=== PATIENT | female | born 1970 | race Caucasian/White ===

== ENCOUNTER 2020-03-27 10:27 | Emergency (ER) | payer MEDICARE, SELFPAY ==
[2020-03-27 10:28] VITALS: BP 155/91; PULSE 67; RESP 18; TEMP 36.6; BMI 32.2
--- NOTE | 2020-03-27 10:54 | CT_ITS ---
WS: [id number] CT HEAD TECHNIQUE: Noncontrast CT of the head obtained from the skullbase to the vertex. CLINICAL INFORMATION: seizure COMPARISON: . DLP: 767.[address] scans at [facility] use at least one of these dose optimization techniques: automat ed exposure control; mA and/or kV adjustment per patient size (includes targeted exams where dose is matched to clinical indication); or iterative reconstruction. FINDINGS: No evidence of intracranial hemorrhage or mass effect. Ventricular system and basal cisterns are zambrano nt No extra-axial fluid collections. No evidence of mass or mass effect. Normal galeano-white differenti ation. Paranasal sinuses and mastoid air cells are well aerated. .Normal visualized soft tissues. Incidental bony osteoma overlying the left mastoid. CT/CT head wo con* [id number] IMPRESSION: 1. No evidence of intracranial hemorrhage or mass effect. 2. Normal galeano-white differentiation. 3. No acute intracranial findings.
--- NOTE | 2020-03-27 11:04 | ED_ITS ---
HPI - Seizure General: Chief Complaint: Seizure Stated Complaint: SEIZURE Time Seen by Provider: 03/27/20 10:53 Source: patient and EMS Mode of arrival: EMS Limitations: no limitations History of Present Illness: HPI Narrative: 49-year-old female has had a history of seizures in the past. She states that in the past they thought it was due to hypoglycemia and she has never been placed on seizure medication. She states she had a seizure yesterday and has had 5-6 seizures today. EMS states she was originally postictal she is now awake alert able answer my questions. She states she does have a moderate headache. She does have a history of a pituitary tumor that was removed years ago. She denies any vomiting denies any worsening or improving factors. She denies any fever. Associated symptoms: Deny chest pain, chills or fever(s) Review of Systems Const: Denies: fever(s), chills, body aches or change in appetite Eyes: Denies: blurry vision or eye discomfort ENMT: Denies: throat pain or dental pain Card: Denies: chest pain Resp: Denies: dyspnea GI: Denies: abdominal pain, nausea, vomiting or diarrhea : Denies: dysuria Musc: Denies: neck pain or back pain Skin/Breast: Denies: rash Neuro: Reports: headache(s) and seizure-like activity Psych: Denies: depression Odin/Lymph: Denies: easy bruising All/Imm: Denies: urticaria Physical Exam Const: COMMON NORMALS: no acute distress, patient oriented x3 and healthy appearing HENMT: COMMON NORMALS: normocephalic and atraumatic HEAD & SCALP: normocephalic and atraumatic Eye: COMMON NORMALS: Equal, round and reactive pupils present and EOMs intact bilaterally PUPIL: Yes Equal, round and reactive pupils present Neck/C-Spine: COMMON NORMALS: full ROM and supple Chest: COMMONS NORMALS: normal inspection of the chest and normal palpation of entire chest wall Resp: COMMON NORMALS: normal respiratory effort, No retractions, No use of accessory muscles and clear to auscultation bilaterally AUSCULTATION: clear to auscultation bilaterally Cardio: COMMON NORMALS: regular rate, regular rhythm and No murmurs present (Cardio) RATE: regular rate RHYTHM: regular rhythm GI: COMMON NORMALS: Normal to inspection, nondistended, normoactive bowel sounds present, Soft to palpation, non-tender and no masses PALPATION: Yes Soft to palpation Extremity: COMMON NORMALS: normal to inspection and full ROM Neuro: COMMON NORMALS: patient oriented x3, moves all extremities and no focal motor deficits Psych: COMMON NORMALS: mental status grossly normal, Normal thought process present and cooperative THOUGHT PROCESS: Normal thought process present Skin: COMMON NORMALS: no rashes or lesions noted and no wounds GENERAL SKIN EXAM: no rashes or lesions noted Course Vital Signs: Vital signs: Vital Signs Temperature 97.8 F 03/27/20 10:28 Pulse Rate 82 03/27/20 13:18 Respiratory Rate 15 03/27/20 13:18 Blood Pressure 161/99 03/27/20 13:18 Pulse Oximetry 96 03/27/20 13:18 MDM - Seizure MDM Narrative: Medical decision making narrative: Shaina presents here with seizure. She has had multiple seizures in the past but she has never been started on seizure medication. She is well-appearing here and has been seizure- free. Her CT head and blood work are normal. We will start her on Keppra and have her follow-up with neurology. She is to return if worsening. She understands and agrees to plan. Lab Data: Labs: Lab Results 03/27/20 03/27/20 03/27/20 Range/Units 09:00 09:00 10:47 WBC 6.2 (4.0-10.0) 10^3/ uL RBC 4.57 (4.1-5.3) 10^6/u L Hgb 13.9 (11.5-15.3) g/dL Hct 42.8 (37.0-47.0) % MCV 93.7 (81-99) fL MCH 30.4 (28.0-34.0) pg MCHC 32.5 (30.0-36.0) g/dL RDW 11.9 L (12.1-15.1) % Plt Count 249 (130-400) 10^3/c mm MPV 10.0 (7.4-10.4) fL Neut % (Auto) 51.6 % Lymph % (Auto) 34.0 % [place]rell % (Auto) 7.4 % Eos % (Auto) 5.5 % Baso % (Auto) 1.3 % Neut # (Auto) 3.19 (1.8-7.7) 10^3/u L Lymph # (Auto) 2.1 (0.8-4.8) 10^3/u L [place]rell # (Auto) 0.5 (0.2-0.9) 10^3/u L Eos # (Auto) 0.3 (0.0-0.8) 10^3/u L Baso # (Auto) 0.1 (0.0-0.1) 10^3/u L Nucleated RBC % (a uto) 0 % Nucleated RBCs # 0.0 /100WBC Sodium 138 (136-145) mmol/L Potassium 4.2 (3.5-5.1) mmol/L Chloride 101 (98-107) mmol/L Carbon Dioxide 24 (22-29) mmol/L Anion Gap 17.2 (5-19) BUN 9 (6-20) mg/dL Creatinine 0.8 (0.5-0.9) mg/dL GFR Calculation 75.6 L (90-130) mL/min Glucose 99 (65-115) mg/dL Calculated Osmolal ity 285 (285-295) mOsm/k g Calcium 9.5 (8.5-10.5) mg/dL Urine Color Straw (Yellow) Urine Appearance Clear (CLEAR) Urine pH 6.5 (5-7) Ur Specific Gravit y 1.005 (1.005-1.030) Urine Protein Neg (Negative) Urine Glucose (UA) Norm (Normal) Urine Ketones Negative (Negative) Urine Blood Neg (Negative) Urine Nitrate Negative (Negative) Urine Bilirubin Neg (Negative) Urine Urobilinogen Norm (Negative) mg/dL Ur Leukocyte Radha ase Negative (Negative) Imaging Data^: CT Head: Attestation: I personally reviewed and interpreted this imaging study as follows: Radiologist's impression: [address] [address] [address] Scan Report Signed Patient: Shaina Garrido Unit #: [id number] : 1970 Age/Sex: 49 / F ADM Date: 03/27/20 Loc: ER Room/Bed: Attending Dr: Ordering Provider/Ordering MD: Frances Cali MD Date of Service: 03/27/20 Procedure(s): CT head wo con* [id number] Accession Number(s): [id number] Report Number: [id number] WS: [id number] CT HEAD TECHNIQUE: Noncontrast CT of the head obtained from the skullbase to the vertex. CLINICAL INFORMATION: seizure COMPARISON: . DLP: 767.[address] scans at [facility] use at least one of these dose optimization techniques: automated exposure control; mA and/or kV adjustment per patient size (includes targeted exams where dose is matched to clinical indication); or iterative reconstruction. FINDINGS: No evidence of intracranial hemorrhage or mass effect. Ventricular system and basal cisterns are patent No extra-axial fluid collections. No evidence of mass or mass effect. Normal galeano-white differentiation. Paranasal sinuses and mastoid air cells are well aerated. .Normal visualized soft tissues. Incidental bony osteoma overlying the left mastoid. CT/CT head wo con* [id number] IMPRESSION: 1. No evidence of intracranial hemorrhage or mass effect. 2. Normal galeano-white differentiation. 3. No acute intracranial findings. Discharge Plan Discharge Patient Disposition: Home Clinical Impression: Generalized seizure Condition: Stable Prescriptions: New Keppra 500 mg tablet 500 mg PO Q12H Qty: 60 RF: 0 No Action cyclobenzaprine 10 mg tablet 10 mg PO BEDTIME RF: 0 venlafaxine 37.5 mg capsule,extended release 24hr 37.5 mg PO DAILY RF: 0 hydrocodone-acetaminophen 5-325 mg tablet 1 tab PO Q6H PRN (Reason: Pain) RF: 0 sucralfate 1 gram tablet 1 g PO QID PRN (Reason: Stomach Upset) RF: 0 losartan 25 mg tablet 25 mg PO DAILY RF: 0 gabapentin 300 mg capsule 300 mg PO TID RF: 0 hydroxyzine HCl 25 mg tablet 25 mg PO Q6H PRN (Reason: Anxiety) RF: 0 diazepam 5 mg tablet 5 mg PO Q6H PRN (Reason: Anxiety) RF: 0 levothyroxine 112 mcg tablet 112 mcg PO DAILY RF: 0 nitrofurantoin monohyd/m-cryst 100 mg capsule 100 mg PO BID RF: 0 cholecalciferol (vitamin D3) 1,250 mcg (50,000 unit) capsule 1,250 mcg PO Q7D RF: 0 potassium chloride 20 mEq tablet extended release 20 meq PO DAILY RF: 0 Discharge Orders: Discharge ED (Routine); Ordered 03/27/20 Ordered By: Frances Cali Referrals: Riddhi Walker MD [Physician] - 1-3 days Discharge Diet: Advance as tolerated Discharge Activity: Resume usual activity Patient Instructions: New-Onset Seizure in Adults (ED) Coding Level of Care Code ED Director Pharmacovigilance for Chg Fwd Exam Comprehensive
[2020-03-27 11:19] LABS: Anion Gap 17.2 (5-19); Blood Urea Nitrogen 9 mg/dL (6-20); Calcium 9.5 mg/dL (8.5-10.5); Carbon Dioxide 24 mmol/L (22-29); Chloride 101 mmol/L (98-107); Glomerular Filtration Rate 75.6 mL/min (90-130); Glucose 99 mg/dL (65-115); Osmolality Calculated 285 mOsm/kg (285-295); Potassium 4.2 mmol/L (3.5-5.1); Sodium 138 mmol/L (136-145)
[2020-03-27] MEDS: LORazepam 2 mg/mL INJ 1 mL 1 MG IVP (11:19)
[2020-03-27 11:22] VITALS: BP 121/76; PULSE 72; RESP 18; O2SAT 96
--- NOTE | 2020-03-27 11:22 | PC.NURSE ---
Has had [address] Cali notified, Meds given per written order. Wakes up after Sz and responds appropriately
[2020-03-27 11:26] LABS: Basophils # 0.1 10^3/uL (0.0-0.1); Basophils % 1.3 %; Eosinophils # 0.3 10^3/uL (0.0-0.8); Eosinophils % 5.5 %; Hematocrit 42.8 % (37.0-47.0); Hemoglobin 13.9 g/dL (11.5-15.3); Lymphocytes # 2.1 10^3/uL (0.8-4.8); Mean Corpuscular HGB Conc 32.5 g/dL (30.0-36.0); Mean Corpuscular Hemoglobin 30.4 pg (28.0-34.0); Mean Corpuscular Volume 93.7 fL (81-99); Monocytes # 0.5 10^3/uL (0.2-0.9); Monocytes % 7.4 %; Neutrophils # 3.19 10^3/uL (1.8-7.7); Neutrophils % 51.6 %; Nucleated Red Blood Cells % 0 %; Platelet Count 249 10^3/cmm (130-400); Red Blood Count 4.57 10^6/uL (4.1-5.3); Red Cell Distribution Width 11.9 % (12.1-15.1); White Blood Count 6.2 10^3/uL (4.0-10.0)
[2020-03-27 11:35] VITALS: BP 121/73; PULSE 63; RESP 18; O2SAT 96
[2020-03-27 12:04] LABS: Add Urine Microscopic? NO
[2020-03-27 12:12] VITALS: BP 121/76; PULSE 68; RESP 18; O2SAT 96
[2020-03-27 12:18] LABS: Bilirubin Urine Neg (Negative); Blood Urine Neg (Negative); Glucose Urine UA Norm (Normal); Ketones Urine Negative (Negative); Leukocyte Esterase Urine Negative (Negative); Nitrate Urine Negative (Negative); Protein Urine Neg (Negative); Specific Gravity, Urine 1.005 (1.005-1.030); Urine Appearance Clear (CLEAR); Urine Color Straw (Yellow); Urobilinogen Urine Norm (Negative); pH Urine 6.5 (5-7)
[2020-03-27 12:33] VITALS: BP 151/99; PULSE 66; RESP 18; O2SAT 96
[2020-03-27 13:18] VITALS: BP 161/99; PULSE 82; RESP 15; O2SAT 96
--- NOTE | 2020-03-27 15:42 | DCPLANNER ---
manager dairy had message to schedule a follow up appointment for patient with Dr. Walker. manager dairy called the office of Dr. Walker, a voicemail was left for Brianda Macedo, clinical trial coordinator for that office with patients information. Patients information will be printed and reviewed. Clinic will call patient with appointment information.
--- NOTE | 2020-03-28 12:52 | DCPLANNER ---
digital strategist senior manager had message to schedule a follow up appointment with Dr. Randolph. digital strategist senior manager faxed patients information to the office of Dr. Randolph, will call for appointment information. Clinic will call patient with appointment information.
--- NOTE | 2020-04-04 14:04 | DCPLANNER ---
Patient has a follow up appointment scheduled for Thursday, May 14, 2020 at 3:[address] Walker. Clinic will call patient with appointment information.
--- NOTE | 2020-04-12 11:12 | DCPLANNER ---
production service manager called the office of Dr. Randolph to confirm that a follow up appointment had been scheduled for patient. production service manager spoke with José Miguel, was told that the clinic did receive referral. production service manager called patient at phone number [phone], unable to speak with patient to see if patient still wanted the referral.
--- NOTE | 2020-05-16 15:16 | DCPLANNER ---
Patient had a follow up appointment scheduled for 05.14.[address] Walker - patient did not attend the appointment.
== END 2020-03-27 13:21 | disposition home or self-care (01) ==
PROVIDERS: Emergency Provider Emergency Medicine
DX: G40.89 Other seizures (principal)
CPT/HCPCS: 12345; 70450; 80048; 81003; 85025; 96374; 96375; 99283; J1953; J2060

== ENCOUNTER 2023-02-26 15:23 | Emergency (ER) | payer MEDICARE, SELFPAY ==
[2023-02-26 15:27] VITALS: BP 152/129; PULSE 80; TEMP 36.6; O2SAT 97; BMI 32.8
--- NOTE | 2023-02-26 15:27 | W.ED.SEIZURE ---
HPI - Seizure General: Chief Complaint: Seizure Stated Complaint: seizure Time Seen by Provider: 02/26/23 15:24 Source: patient Mode of arrival: EMS History of Present Illness: HPI Narrative: 52-year-old female presents emergency room with complaint of headache and seizure-like activity. Few ago the patient had a neck surgery. She had not been taking any of her medications for about 3 weeks prior to the. He says she has a history of seizures she is on Keppra. She has had a couple of breakthrough seizures last few weeks had a seizure today when she was outside doing some neck exercises a bystander seen her and called ambulance and brought her in. She said she has not been taking seizure medications for some time because they stopped them when they associated her seizures with her headaches. She does have Keppra on her medication list of 500 twice daily. MD complaint: seizure Seizure History: Yes Associated symptoms: Deny chest pain, chills or fever(s) Review of Systems Const: Denies: fever(s) or chills Card: Denies: chest pain Resp: Denies: dyspnea GI: Denies: abdominal pain : Denies: dysuria, urinary frequency or urinary urgency Musc: Denies: neck pain or back pain Skin/Breast: Denies: rash Physical Exam Const: COMMON NORMALS: no acute distress GENERAL APPEARANCE: cooperative and comfortable ORIENTATION/CONSCIOUSNESS: Yes awake, Yes oriented to person, Yes oriented to place and Yes oriented to time HENMT: COMMON NORMALS: normocephalic, atraumatic and hearing grossly normal bilaterally HEAD & SCALP: normocephalic and atraumatic Resp: COMMON NORMALS: normal respiratory effort, No retractions, No use of accessory muscles and clear to auscultation bilaterally AUSCULTATION: clear to auscultation bilaterally Cardio: COMMON NORMALS: regular rate, regular rhythm and No murmurs present (Cardio) RATE: regular rate RHYTHM: regular rhythm GI: COMMON NORMALS: Soft to palpation and No hepatosplenomegaly present AUSCULTATION: Yes normoactive bowel sounds PALPATION: Yes Soft to palpation, No Tenderness to palpation present (GI), No Guarding due to palpation present (GI) and Yes No hepatosplenomegaly present Extremity: COMMON NORMALS: normal to inspection, capillary refill normal, no clubbing, cyanosis or edema, no calf tenderness and no pedal edema Neuro: SENSORIUM/ORIENTATION: Yes oriented to person, Yes oriented to place and Yes oriented to time Skin: COMMON NORMALS: no rashes or lesions noted GENERAL SKIN EXAM: no rashes or lesions noted Course Vital Signs: Vital signs: Vital Signs Temperature 98 F 02/26/23 20:05 Pulse Rate 81 02/26/23 20:05 Respiratory Rate 18 02/26/23 20:05 Blood Pressure 185/149 02/26/23 20:05 Pulse Oximetry 94 02/26/23 20:05 Oxygen Delivery Me thod Room Air 02/26/23 17:39 MDM - Seizure MDM Narrative Medical decision making narrative: Patient has been off her Keppra for some time. She is given a loading dose and started on Keppra 500 mg twice daily. Give her Phenergan to use as needed for breakthrough headache. Continue her other medications for now recommend she follow-up with her primary care doctor or neurologist in the next week return if she has further problems. Other labs reviewed as found on the chart today. Medical Records Attestation: I reviewed the patient's medical records. Lab Data Attestation: I reviewed the patient's lab results. 02/26/23 15:30 02/26/23 15:30 Labs: Laboratory Results WBC 7.57 10^3/uL (3.29-11.43) 02/26/23 15:30 RBC 4.44 10^6/uL (3.85-5.65) 02/26/23 15:30 Hgb 14.40 g/dL (11.27-16.99) 02/26/23 15:30 Hct 43.2 % (36-47) 02/26/23 15:30 MCV 97.3 fl (85-98) 02/26/23 15:30 MCH 32.4 pg (27-33) 02/26/23 15:30 MCHC 33.3 g/dL (30-55) 02/26/23 15:30 RDW 13.0 % (12.1-15.1) 02/26/23 15:30 Plt Count 213 10^3/cmm (157-399) 02/26/23 15:30 MPV 9.9 fL (7.4-10.4) 02/26/23 15:30 Neut % (Auto) 73.9 % 02/26/23 15:30 Lymph % (Auto) 21.9 % 02/26/23 15:30 [place] % (Auto) 2.5 % 02/26/23 15:30 Eos % (Auto) 0.7 % 02/26/23 15:30 Baso % (Auto) 0.7 % 02/26/23 15:30 Neut # (Auto) 5.60 10^3/uL (1.8-7.7) 02/26/23 15:30 Lymph # (Auto) 1.7 10^3/uL (0.8-4.8) 02/26/23 15:30 [place] # (Auto) 0.2 10^3/uL (0.2-0.9) 02/26/23 15:30 Eos # (Auto) 0.1 10^3/uL (0.0-0.8) 02/26/23 15:30 Baso # (Auto) 0.1 10^3/uL (0.0-0.1) 02/26/23 15:30 Nucleated RBC % (auto) 0 % 02/26/23 15:30 Nucleated RBCs # 0.0 /100WBC 02/26/23 15:30 Sodium 136 mmol/L (136-145) 02/26/23 15:30 Potassium 4.0 mmol/L (3.5-5.1) 02/26/23 15:30 Chloride 102 mmol/L (98-107) 02/26/23 15:30 Carbon Dioxide 24 mmol/L (22-29) 02/26/23 15:30 Anion Gap 14.0 (5-19) 02/26/23 15:30 BUN 13 mg/dL (6-20) 02/26/23 15:30 Creatinine 0.8 mg/dL (0.5-0.9) 02/26/23 15:30 GFR Calculation 74.7 mL/min (90-130) L 02/26/23 15:30 Glucose 106 mg/dL (65-115) 02/26/23 15:30 Calculated Osmolality 283 mOsm/kg (285-295) L 02/26/23 15:30 Calcium 9.6 mg/dL (8.5-10.5) 02/26/23 15:30 Total Bilirubin 0.9 mg/dL (0.15-1.2) 02/26/23 15:30 AST 23 U/L (0-32) 02/26/23 15:30 ALT 24 U/L (0-33) 02/26/23 15:30 Alkaline Phosphatase 60 U/L (35-105) 02/26/23 15:30 Total Protein 7.7 g/dL (6.6-8.7) 02/26/23 15:30 Albumin 4.1 g/dL (3.5-5.2) 02/26/23 15:30 Globulin 3.6 g/dL (1.3-4.6) 02/26/23 15:30 Lipase 16 U/L (13-60) 02/26/23 15:30 No radiology studies performed this visit Discharge Plan Discharge Patient Disposition: Home Clinical Impression: Generalized seizure, Migraine Condition: Stable Prescriptions: New promethazine 25 mg tablet 25 mg PO Q6H PRN (Reason: headache) Qty: 20 0RF Keppra 500 mg tablet 500 mg PO BID Qty: 60 0RF No Action cyclobenzaprine 10 mg tablet 10 mg PO BEDTIME venlafaxine 37.5 mg capsule,extended release 24hr 37.5 mg PO DAILY hydrocodone-acetaminophen 5-325 mg tablet 1 tab PO Q6H PRN (Reason: Pain) sucralfate 1 gram tablet 1 g PO QID PRN (Reason: Stomach Upset) losartan 25 mg tablet 25 mg PO DAILY gabapentin 300 mg capsule 300 mg PO TID hydroxyzine HCl 25 mg tablet 25 mg PO Q6H PRN (Reason: Anxiety) diazepam 5 mg tablet 5 mg PO Q6H PRN (Reason: Anxiety) levothyroxine 112 mcg tablet 112 mcg PO DAILY nitrofurantoin monohyd/m-cryst 100 mg capsule 100 mg PO BID Rx Instructions: x 7 days cholecalciferol (vitamin D3) 1,250 mcg (50,000 unit) capsule 1,250 mcg PO Q7D Rx Instructions: (ON TUESDAYS) potassium chloride 20 mEq tablet extended release 20 meq PO DAILY levetiracetam [Keppra] 500 mg tablet 500 mg PO Q12H Qty: 60 0RF Discharge Orders: Discharge ED (Routine); Ordered 02/26/23 Ordered By: Uriha Burton Discharge Diet: Usual diet Discharge Activity: Increase activity as tolerated Patient Instructions: Opioid Safety, Pain Management Activity Restrictions/Additional Instructions: Thank you for choosing [facility] for your healthcare needs today. Please realize this is an emergency room and that we are providing you with a medical screening exam and this may not be complete and all inclusive of all the testing and or work up that you may need to determine your ailment or severity of your illness. It is very important that you follow up as instructed or that you return to the Emergency Department should you have concerns or if your condition changes or worsens in any way. Recommend resuming your Keppra 500 mg twice daily. Use Phenergan as needed for headache. Coding Level of Care Code ED Flowers Salesperson for Vincent Salcido
[2023-02-26 15:39] LABS: Basophils # 0.1 10^3/uL (0.0-0.1); Basophils % 0.7 %; Eosinophils # 0.1 10^3/uL (0.0-0.8); Eosinophils % 0.7 %; Hematocrit 43.2 % (36-47); Lymphocytes # 1.7 10^3/uL (0.8-4.8); Lymphocytes % 21.9 %; Mean Corpuscular HGB Conc 33.3 g/dL (30-55); Mean Corpuscular Hemoglobin 32.4 pg (27-33); Mean Corpuscular Volume 97.3 fl (85-98); Mean Platelet Volume 9.9 fL (7.4-10.4); Monocytes # 0.2 10^3/uL (0.2-0.9); Monocytes % 2.5 %; Neutrophils % 73.9 %; Nucleated Red Blood Cells % 0 %; Platelet Count 213 10^3/cmm (157-399); Red Blood Count 4.44 10^6/uL (3.85-5.65); White Blood Count 7.57 10^3/uL (3.29-11.43)
[2023-02-26 15:55] VITALS: BP 167/138; PULSE 76; RESP 18; O2SAT 97
--- NOTE | 2023-02-26 15:56 | PC.NURSE ---
PT REPORTS NOT TAKING HER MEDICATIONS FOR THE LAST 3 WEEKS DUE TO BEING UNABLE TO PAY FOR THEM. DR. MACARIO NOTIFIED NO FURTHER ORDERS.
[2023-02-26 16:10] LABS: Alanine Aminotransferase 24 U/L (0-33); Albumin Level 4.1 g/dL (3.5-5.2); Alkaline Phosphatase 60 U/L (35-105); Aspartate Amino Transferase 23 U/L (0-32); Blood Urea Nitrogen 13 mg/dL (6-20); Calcium 9.6 mg/dL (8.5-10.5); Carbon Dioxide 24 mmol/L (22-29); Chloride 102 mmol/L (98-107); Creatinine Clr Calc Pharmacy 95.2605; Globulin 3.6 g/dL (1.3-4.6); Glomerular Filtration Rate 74.7 mL/min (90-130); Glucose 106 mg/dL (65-115); Lipase 16 U/L (13-60); Osmolality Calculated 283 mOsm/kg (285-295); Sodium 136 mmol/L (136-145); Total Bilirubin 0.9 mg/dL (0.15-1.2); Total Protein 7.7 g/dL (6.6-8.7)
[2023-02-26] MEDS: ketorolac 30 mg/mL INJ IVP (16:32)
[2023-02-26] MEDS: sodium chloride 0.9% 1,000 ML 999 ML IV (16:32)
[2023-02-26] MEDS: promethazine 25 mg/mL SDV 1 mL IM (16:32)
[2023-02-26 17:39] VITALS: BP 185/149; PULSE 81; RESP 18; O2SAT 94
[2023-02-26] MEDS: valproic acid inj 500 MG in sodium chloride 0.9% 50 ML 55 MG IV (18:00)
[2023-02-26 20:05] VITALS: BP 185/149; PULSE 81; RESP 18; TEMP 36.6; O2SAT 94
== END 2023-02-26 20:06 | disposition home or self-care (01) ==
PROVIDERS: Emergency Provider Family Medicine; PCP Family Medicine
DX: G40.909 Epilepsy, unspecified, not intractable, without status epilepticus (principal); G43.909 Migraine, unspecified, not intractable, without status migrainosus
CPT/HCPCS: 80053; 83690; 85025; 96365; 96366; 96367; 96372; 96375; 99284; J1885; J1953; J2550; J3490; J7030

== ENCOUNTER 2023-11-05 10:53 | Observation (INO) | payer OTHER, MEDICARE, SELFPAY ==
[2023-11-05] VITALS (75 sets, daily range): BP systolic 99–171; BP diastolic 65–110; PULSE 76–92; RESP 13–24; TEMP 36.4–36.7; O2SAT 88–100; BMI 34.4
--- NOTE | 2023-11-05 10:54 | CTR_ITS ---
PROCEDURE INFORMATION: Exam: CT Head Without Contrast Exam date and time: 11/05/2023 11:01 AM Age: 53 years old Clinical indication: Stroke-like symptoms; Altered mental status/memory loss and dizziness/giddiness and other: Seizure, unresponsive; Additional info: Symptoms of acute stroke TECHNIQUE: Imaging protocol: Computed tomography of the head without contrast. Radiation optimization: All CT scans at this facility use at least one of these dose optimization techniques: automated exposure control; mA and/or kV adjustment per patient size (includes targeted exams where dose is matched to clinical indication); or iterative reconstruction. Other technique: STROKE PROTOCOL was implemented. COMPARISON: CT head wo con* [id number] 03/27/2020 11:25 AM RADIATION DOSE METRICS: Total DLP (mGy-cm): 1068.54 FINDINGS: Brain: Normal. No hemorrhage. Unremarkable white matter. No mass effect. Ventricles: No hydrocephalus or evidence of increased intracranial pressure. Paranasal sinuses: Visualized sinuses are unremarkable. No fluid levels. Mastoid air cells: Visualized mastoid air cells are well aerated. Bones: Unremarkable. No acute fracture. Soft tissues: Unremarkable. CT/CT head thrombolytic [id number] IMPRESSION: No acute intracranial abnormality identified. ASSESSMENT: ASPECTS (Nicole Stroke Program Early CT Score) is 10.
--- NOTE | 2023-11-05 10:54 | ECG_ITS ---
[facility] Test Date: 2023-11-05 Pat Name: Shaina Garrido Department: Room: Gender: Female [employer]: : 1970 Requested By: Uriah Ventura Order Number: [id number] Jameson MD: Ella Chavez M.D. Measurements Intervals [place] Rate: 82 P: 24 WA: 164 QRS: -16 QRSD: 99 T: 57 QT: 389 QTc: 457 Interpretive Statements SINUS RHYTHM INCOMPLETE RIGHT BUNDLE BRANCH BLOCK [90+ ms QRS DURATION, TERMINAL R IN V1/V2, 40+ ms S IN I/aVL/V4/V5/V6] NONSPECIFIC T-WAVE ABNORMALITY INTERPRETATION BASED ON A DEFAULT AGE OF 40 YEARS Compared to ECG 01/09/2019 12:47:14 Incomplete right bundle-branch block now present Sinus arrhythmia no longer present Left-axis deviation no longer present T-wave abnormality still present Electronically Signed On 11-05-2023 23:23:10 CDT by Ella Chavez M.D. [id number]
[2023-11-05] MEDS: LORazepam 2 mg/mL INJ 1 mL IVP (10:58)
[2023-11-05] MEDS: levETIRAcetam 1,000 MG/100 ML PREMIX 400 MG IV (11:05)
[2023-11-05 11:06] LABS: Basophils # 0.1 10^3/uL (0.0-0.1); Basophils % 1.1 %; Eosinophils # 0.3 10^3/uL (0.0-0.8); Eosinophils % 3.1 %; Hematocrit 40.9 % (36-47); Lymphocytes # 2.7 10^3/uL (0.8-4.8); Lymphocytes % 30.7 %; Mean Corpuscular HGB Conc 32.8 g/dL (30-55); Mean Corpuscular Hemoglobin 31.5 pg (27-33); Mean Corpuscular Volume 96.2 fl (85-98); Mean Platelet Volume 9.6 fL (7.4-10.4); Monocytes # 0.8 10^3/uL (0.2-0.9); Monocytes % 8.8 %; Neutrophils # 4.88 10^3/uL (1.8-7.7); Neutrophils % 55.8 %; Nucleated Red Blood Cells % 0 %; Platelet Count 283 10^3/cmm (157-399); Red Blood Count 4.25 10^6/uL (3.85-5.65); Red Cell Distribution Width 13.1 % (12.1-15.1); White Blood Count 8.74 10^3/uL (3.29-11.43)
--- NOTE | 2023-11-05 11:21 | PC.PHAR ---
Addendum entered by Susanna Hernandez 11/05/23 11:46: PT HAS SEVERAL MEDICATIONS ON LIST NO LONGER TAKING-REMOVED FROM CHART: GABAPENTIN 300MG, HYDROXYZINE 25MG, KEPPRA 500MG, POTASSIUM CHL 20MEQ, PROMETHAZINE 25MG, CARAFATE 1 GRAM, VENLAFAXINE 37.5MG Original Note: PT HAS RECENT RX FOR TRAMADOL 50MG-1 EVERY 8 HOURS NEEDED FOR PAIN. In summary, if you?re on seizure medication, it?s crucial to discuss tramadol use with your healthcare provider. They can assess the potential risks and benefits based on your individual situation. Always prioritize safety and informed decision-making!
[2023-11-05 11:24] LABS: INR 1.03 (0.8-1.2)
[2023-11-05 11:25] LABS: Partial Thromboplastin Time 27.7 SECONDS (23.9-36.7)
[2023-11-05 11:27] LABS: Alanine Aminotransferase 12 U/L (0-33); Alkaline Phosphatase 61 U/L (35-105); Anion Gap 17.3 (5-19); Aspartate Amino Transferase 17 U/L (0-32); Blood Urea Nitrogen 12 mg/dL (6-20); Carbon Dioxide 22 mmol/L (22-29); Chloride 102 mmol/L (98-107); Creatinine Clr Calc Pharmacy 96.4287; Globulin 3.8 g/dL (1.3-4.6); Glomerular Filtration Rate 74.5 mL/min (90-130); Glucose 109 mg/dL (65-115); Osmolality Calculated 286 mOsm/kg (285-295); Potassium 3.3 mmol/L (3.5-5.1); Sodium 138 mmol/L (136-145); Total Bilirubin 0.6 mg/dL (0.15-1.2); Total Protein 7.8 g/dL (6.6-8.7)
[2023-11-05 11:30] LABS: Glucose Point of Care 102 mg/dL (70-110)
--- NOTE | 2023-11-05 11:31 | W.ED.NEUROSD ---
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 She was brought by wheelchair to the exam room and a stroke alert was called. She did appear to have a little bit of left-sided facial drooping initially. Patient was nonresponsive until later and she was able to tell us that she has a history of seizures has had both absents like seizures and tonic-clonic seizures similar to what we witnessed today in the emergency room. Patient had a seizure shortly after coming to the trauma room and then another while in the CT scanner she was given Keppra and Ativan for this. She told us later that she had recently stopped her antiseizure medications that she had not had any seizures for some time. Her seizures are usually associated with headaches which was not the case this time. Onset (ago): minute(s) Associated symptoms: Reports malaise and seizures; Deny chest pain, cough, diaphoresis, fevers/chills, headache(s), anorexia, nausea, short of breath, syncope, tingling, vertigo, vomiting or weakness Review of Systems Const: Reports: malaise; Denies: diaphoresis Card: Denies: chest pain or syncope Resp: Denies: dyspnea GI: Denies: nausea or vomiting : Denies: dysuria, urinary frequency or urinary urgency Musc: Denies: neck pain or back pain Skin/Breast: Denies: rash Neuro: Denies: headache(s) or vertigo PFS ED PFSH: Medical History Hypothyroidism Hypertension Psoriasis Psychiatric care Surgical History History of hysterectomy History of appendectomy History of cholecystectomy History of back surgery History of neck surgery Social History Smoking and tobacco/nicotine status: never used tobacco/nicotine Alcohol intake: never Substance/Drug Use: never NIH stroke score NIHSS: Level Of Consciousness - 1a: 0 Level Of Consciousness Questions - 1b: Both Correct Level Of Consciousness Commands - 1c: Both Correct Best Gaze - 2: Normal Visual Cason - 3: No Visual Loss Facial Palsy - 4: Normal Motor Arm Right - 5: No Drift Motor Arm Left - 5: No Drift Motor Leg Right - 6: No Drift Motor Leg Left - 6: No Drift Limb Ataxia - 7: Absent Sensory - 8: Normal Best Language - 9: No Aphasia Dysarthia - 10: Normal Extinction And Inattention - 11: 0 Score: Total Score: 0 Physical Exam Const: COMMON NORMALS: no acute distress GENERAL APPEARANCE: cooperative and comfortable ORIENTATION/CONSCIOUSNESS: Yes awake HENMT: COMMON NORMALS: normocephalic, atraumatic and hearing grossly normal bilaterally HEAD & SCALP: normocephalic and atraumatic Resp: COMMON NORMALS: normal respiratory effort, No retractions, No use of accessory muscles and clear to auscultation bilaterally AUSCULTATION: clear to auscultation bilaterally Cardio: COMMON NORMALS: regular rate, regular rhythm and No murmurs present (Cardio) RATE: regular rate RHYTHM: regular rhythm GI: COMMON NORMALS: Soft to palpation and No hepatosplenomegaly present AUSCULTATION: Yes normoactive bowel sounds PALPATION: Yes Soft to palpation, No Tenderness to palpation present (GI), No Guarding due to palpation present (GI) and Yes No hepatosplenomegaly present Extremity: COMMON NORMALS: normal to inspection, capillary refill normal, no clubbing, cyanosis or edema, no calf tenderness and no pedal edema Skin: COMMON NORMALS: no rashes or lesions noted GENERAL SKIN EXAM: no rashes or lesions noted Course Vital Signs: Vital signs: Vital Signs Temperature 98.1 F 11/05/23 10:58 Pulse Rate 82 11/05/23 15:00 Respiratory Rate 22 H 11/05/23 15:00 Blood Pressure 132/65 11/05/23 15:00 Pulse Oximetry 94 11/05/23 15:00 Oxygen Delivery Me thod Room Air 11/05/23 15:00 MDM - Neuro Symptoms/Deficit Medical Decision Making CT head and CT a head and neck did not show any acute abnormalities. Once patient had recovered and the postictal phase is resolved she was awake and alert and able to participate in a full NIH exam. She did have some vague abnormalities difficult to the score but were all nonfocal overall Dr. Moscoso and myself felt that the patient had an NIH of 0. Given the fact that she has had at least 3 seizures now will admit her to the hospitalist discussed with hospitalist orders written. Dr. Moscoso will follow-up as well. He recommends continuing Keppra. Medical Records I reviewed the patient's medical records. Lab Data I reviewed the patient's lab results. 11/05/23 11:01 11/05/23 11:[address] 11/05/23 10:54 IMPRESSION: No acute intracranial abnormality identified. ASSESSMENT: ASPECTS ([place] Stroke Program Early CT Score) is 10. ADDENDUM: 11/05/23 1125 THIS REPORT CONTAINS FINDINGS THAT MAY BE CRITICAL TO PATIENT CARE. The findings were verbally communicated by me to DR. URIAH BURTON via telephone conference at 11:23 AM CDT on 11/05/2023. The findings were acknowledged and understood. Head/Neck CTA 11/05/23 11:32 IMPRESSION: No acute intracranial vascular abnormality identified. IMPRESSION: No acute extracranial vascular abnormality identified. REFERENCES: NASCET CRITERIA. The degree of stenosis in the cervical segment of the internal carotid artery is based on NASCET criteria. Normal is no stenosis. Mild is less than 50% stenosis. Moderate is 50-69% stenosis. Severe is 70% to 99% stenosis. Total occlusion is no detectable patent lumen. Laboratory Results WBC 8.74 10^3/uL (3.29-11.43) 11/05/23 11:01 RBC 4.25 10^6/uL (3.85-5.65) 11/05/23 11:01 Hgb 13.40 g/dL (11.27-16.99) 11/05/23 11:01 Hct 40.9 % (36-47) 11/05/23 11:01 MCV 96.2 fl (85-98) 11/05/23 11:01 MCH 31.5 pg (27-33) 11/05/23 11:01 MCHC 32.8 g/dL (30-55) 11/05/23 11:01 RDW 13.1 % (12.1-15.1) 11/05/23 11:01 Plt Count 283 10^3/cmm (157-399) 11/05/23 11:01 MPV 9.6 fL (7.4-10.4) 11/05/23 11:01 Neut % (Auto) 55.8 % 11/05/23 11:01 Lymph % (Auto) 30.7 % 11/05/23 11:01 Anderson % (Auto) 8.8 % 11/05/23 11:01 Eos % (Auto) 3.1 % 11/05/23 11:01 Baso % (Auto) 1.1 % 11/05/23 11:01 Neut # (Auto) 4.88 10^3/uL (1.8-7.7) 11/05/23 11:01 Lymph # (Auto) 2.7 10^3/uL (0.8-4.8) 11/05/23 11:01 Anderson # (Auto) 0.8 10^3/uL (0.2-0.9) 11/05/23 11:01 Eos # (Auto) 0.3 10^3/uL (0.0-0.8) 11/05/23 11:01 Baso # (Auto) 0.1 10^3/uL (0.0-0.1) 11/05/23 11:01 Nucleated RBC % (auto) 0 % 11/05/23 11:01 Nucleated RBCs # 0.0 /100WBC 11/05/23 11:01 PT 13.80 SECONDS (12.1-14.9) 11/05/23 11:01 INR 1.03 (0.8-1.2) 11/05/23 11:01 APTT 27.7 SECONDS (23.9-36.7) 11/05/23 11:01 Sodium 138 mmol/L (136-145) 11/05/23 11:01 Potassium 3.3 mmol/L (3.5-5.1) L 11/05/23 11:01 Chloride 102 mmol/L (98-107) 11/05/23 11:01 Carbon Dioxide 22 mmol/L (22-29) 11/05/23 11:01 Anion Gap 17.3 (5-19) 11/05/23 11:01 BUN 12 mg/dL (6-20) 11/05/23 11:01 Creatinine 0.8 mg/dL (0.5-0.9) 11/05/23 11:01 GFR Calculation 74.5 mL/min (90-130) L 11/05/23 11:01 Glucose 109 mg/dL (65-115) 11/05/23 11:01 POC Glucose 102 mg/dL (70-110) 11/05/23 10:57 Calculated Osmolality 286 mOsm/kg (285-295) 11/05/23 11:01 Calcium 9.0 mg/dL (8.5-10.5) 11/05/23 11: Magnesium 2.1 mg/dL (1.7-2.3) 11/05/23 11: Total Bilirubin 0.6 mg/dL (0.15-1.2) 11/05/23 11:01 AST 17 U/L (0-32) 11/05/23 11: ALT 12 U/L (0-33) 11/05/23 11:01 Alkaline Phosphatase 61 U/L (35-105) 11/05/23 11:01 Total Protein 7.8 g/dL (6.6-8.7) 11/05/23 11:01 Albumin 4.0 g/dL (3.5-5.2) 11/05/23 11: Globulin 3.8 g/dL (1.3-4.6) 11/05/23 11: TSH 1.28 uIU/mL (0.27-4.20) 11/05/23 11:01 Urine Color Yellow (Yellow) 11/05/23 12:22 Urine Appearance Slightly cloudy (CLEAR) 11/05/23 12:22 Urine pH 7 (5-7) 11/05/23 12:22 Ur Specific [place] 1.010 (1.005-1.030) 11/05/23 12:22 Urine Protein Neg (Negative) 11/05/23 12:22 Urine Glucose (UA) Norm (Normal) 11/05/23 12:22 Urine Ketones Negative (Negative) 11/05/23 12:22 Urine Blood Neg (Negative) 11/05/23 12:22 Urine Nitrate Negative (Negative) 11/05/23 12:22 Urine Bilirubin Neg (Negative) 11/05/23 12:22 Urine Urobilinogen Norm mg/dL (Negative) 11/05/23 12:22 Ur Leukocyte Esterase Negative (Negative) 11/05/23 12:22 Urine RBC None /hpf (0-2) 11/05/23 12:22 Urine WBC 5-10 /hpf (0-5) H 11/05/23 12:22 Ur Squamous Epith Cells 5-10 /hpf (0-5) H 11/05/23 12:22 Amorphous Sediment Not Reportable 11/05/23 12:22 Urine Bacteria Trace /hpf (NONE) 11/05/23 12:22 Urine Mucus None /hpf 11/05/23 12:22 Urine Opiates Screen Negative ng/mL (Negative) 11/05/23 12:22 Ur Barbiturates Screen Negative ng/mL (Negative) 11/05/23 12:22 Ur Phencyclidine Scrn Negative ng/mL (Negative) 11/05/23 12:22 Ur Amphetamines Screen Negative ng/mL (Negative) 11/05/23 12:22 U Benzodiazepines Scrn Negative ng/mL (Negative) 11/05/23 12:22 Urine Cocaine Screen Negative ng/mL (Negative) 11/05/23 12:22 U Marijuana (THC) Screen Negative ng/mL (Negative) 11/05/23 12:22 All radiology interpretation(s) finalized by discharge Discharge Plan Discharge Patient Disposition: Admitted As Inpatient Admit Provider: Asa Hope Clinical Impression: Seizures Condition: Stable Coding Level of Care Code ED General Accounting Manager for Vincent Salcido
--- NOTE | 2023-11-05 11:32 | CTR_ITS ---
PROCEDURE INFORMATION: Exam: CTA Head With Contrast, Arteriography Exam date and time: 11/05/2023 11:46 AM Age: 53 years old Clinical indication: Patient HX: HX of seizures; Additional info: Seizure TECHNIQUE: Imaging protocol: Computed tomographic angiography of the head with contrast. Exam focused on the arteries. 3D rendering (Not supervised by radiologist): MIP reconstructed images were created by the technologist. Radiation optimization: All CT scans at this facility use at least one of these dose optimization techniques: automated exposure control; mA and/or kV adjustment per patient size (includes targeted exams where dose is matched to clinical indication); or iterative reconstruction. Contrast material: OMNI 350; Contrast volume: 100 ml; Contrast route: INTRAVENOUS (IV); COMPARISON: CT head thrombolytic [id number] 11/05/2023 11:01 AM RADIATION DOSE METRICS: Total DLP (mGy-cm): 536.97 FINDINGS: ANTERIOR CIRCULATION: Right internal carotid artery: Intracranial segment is patent with no significant stenosis. No aneurysm. Right middle cerebral artery: No occlusion or significant stenosis. No aneurysm. Right anterior cerebral artery: No occlusion or significant stenosis. No aneurysm. Left internal carotid artery: Intracranial segment is patent with no significant stenosis. No aneurysm. Left middle cerebral artery: No occlusion or significant stenosis. No aneurysm. Left anterior cerebral artery: No occlusion or significant stenosis. No aneurysm. POSTERIOR CIRCULATION: Right vertebral artery: No occlusion or significant stenosis. No aneurysm. Left vertebral artery: No occlusion or significant stenosis. No aneurysm. Basilar artery: Small basilar artery secondary to bilateral predominately embryonic origin of the posterior cerebral arteries. No stenosis/occlusion. Right posterior cerebral artery: Predominately embryonic origin of the right posterior cerebral artery, normal variant. No stenosis/occlusion. Left posterior cerebral artery: Predominately embryonic origin of the left posterior cerebral artery, normal variant. No stenosis/occlusion. Brain: No definite mass, mass effect, or midline shift. Ventricles: No hydrocephalus. Bones/joints: No acute abnormality. No acute fracture. Soft tissues: Unremarkable. PROCEDURE INFORMATION: Exam: CTA Neck With Contrast Exam date and time: 11/05/2023 11:46 AM Age: 53 years old Clinical indication: Patient HX: HX of seizures; Additional info: Seizure TECHNIQUE: Imaging protocol: Computed tomographic angiography of the neck with contrast. Exam focused on the cervical segments of the vasculature. 3D rendering (Not supervised by radiologist): MIP reconstructed images were created by the technologist. Radiation optimization: All CT scans at this facility use at least one of these dose optimization techniques: automated exposure control; mA and/or kV adjustment per patient size (includes targeted exams where dose is matched to clinical indication); or iterative reconstruction. Contrast material: OMNI 350; Contrast volume: 100 ml; Contrast route: INTRAVENOUS (IV); COMPARISON: CT head thrombolytic [id number] 11/05/2023 11:01 AM RADIATION DOSE METRICS: Total DLP (mGy-cm): 536.97 FINDINGS: Right common carotid artery: No stenosis. No dissection or occlusion. Right internal carotid artery: Mild calcified and noncalcified smooth plaque proximal right internal carotid artery origin 20% stenosis. Right external carotid artery: No occlusion or stenosis of the origin. Left common carotid artery: Left common carotid artery bifurcation calcified and uncalcified plaque, less than 20% stenosis. Left internal carotid artery: Mild proximal left internal carotid artery calcified smooth plaque, less than 10% stenosis. Left external carotid artery: No occlusion or stenosis of the origin. Right vertebral artery: No stenosis. No dissection or occlusion. Left vertebral artery: No stenosis. No dissection or occlusion. Soft tissues: Normal. No significant soft tissue swelling. Bones/joints: Moderate left C2-C3 and C3-C4 primary facet osteoarthritis. Slight C3-C4 anterolisthesis. C4-C5 degenerative disc disease with moderate spondylosis. Anterior cervical discectomy and fusion has been performed at the C5-C6 and C6-C7 levels. The intervertebral body grafts are fused. The metallic hardware appears intact and in good position. CT/CT angio headneck* [id number] IMPRESSION: No acute intracranial vascular abnormality identified. IMPRESSION: No acute extracranial vascular abnormality identified. REFERENCES: NASCET CRITERIA. The degree of stenosis in the cervical segment of the internal carotid artery is based on NASCET criteria. Normal is no stenosis. Mild is less than 50% stenosis. Moderate is 50-69% stenosis. Severe is 70% to 99% stenosis. Total occlusion is no detectable patent lumen.
--- NOTE | 2023-11-05 11:37 | P.CONIM_ITS ---
Providers/Reason For Consult 2 Consulting Physician/Specialty*: Dung Moscoso MD neurology and epilepsy Reason for Consult*: Acute care code stroke emergency department room #10 History of Present Illness History of Present Illness Shaina Garrido is a 53 year old female who reports a 2-year history of seizure- like episodes preceded by a buzzing sound in her head associated with elevated blood pressure with systolic blood pressure greater than 200 followed by pain behind her eyes and generalized severe aching pain in her head followed by blurred vision followed by face drawing up on the left and then generalized shaking and tonic posturing associated with teeth clenching lasting anywhere from 30 seconds up to 3 minutes. The patient reports that she was evaluated by a neurologist in [facility] and was started on Keppra with improvement in her symptoms. Patient reports undergoing head MRI and EEGs in [place]. According to the patient the studies were unrevealing. These records were not available for review. The patient reported that since she was stable, her Keppra was tapered and discontinued for 5 months ago. Patient is not sure of the dose of Keppra she was taking. The patient was at work on 11/05/2023 and was witnessed to experience a seizure-like episode. Code stroke was initiated and patient was transferred to the [facility] emergency room for a evaluation and treatment. Noncontrast head CT was obtained and reported to be negative. Serum glucose 109. CBC and comprehensive metabolic panel revealed decreased potassium at 3.3. Other labs were unrevealing. NIH score = 0. In the emergency room patient was loaded with 1 g of Keppra IV and Ativan IV x 1 dose with improvement in her symptoms prior to her neurological NIH assessment. The patient also has a history of 3 neck surgeries as well as 3 back surgeries with residual numbness in her lower extremities bilaterally from the knees down to include her feet and toes.. She stated that recently she hurt her back bending down to brain picker an object and she has been scheduled for a lumbar MRI. Drug allergies Celebrex type reaction unknown Penicillin which resulted in rash and facial swelling Vioxx type reaction unknown Cortisone cream type reaction unknown Current medications Flexeril 10 mg p.o. nightly Valium 5 mg p.o. every 6 hours as needed Vitamin D3 50,000 international units p.o. weekly Neurontin 300 mg p.o. 3 times daily Hydrocodone 1 p.o. every 6 hours as needed pain Hydroxyzine 25 mg p.o. every 6 hours as needed for anxiety Synthroid 112 mcg p.o. daily Losartan 25 mg p.o. daily Potassium chloride 20 mEq p.o. daily Nitrofurantoin 100 mg p.o. twice daily Carafate 1 g p.o. 4 times daily as needed Effexor 37.5 mg p.o. 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 Review of Systems 2 General: Reports: 10 or more systems reviewed and unremarkable except in HPI and below Medications/Allergies Home Medications Medication Instructions Recorded Confirmed Last Taken Type cholecalciferol (vitamin D3) 1,250 1,250 mcg PO Q7D 03/27/20 11/05/23 11/03/23 History mcg (50,000 unit) capsule cyclobenzaprine 10 mg tablet 10 mg PO BEDTIME 03/27/20 11/05/23 11/04/23 History diazepam 5 mg tablet 5 mg PO Q6H PRN Anxiety 03/27/20 11/05/23 Unknown History losartan 25 mg tablet 25 mg PO DAILY 03/27/20 11/05/23 11/05/23 History levetiracetam 500 mg tablet 500 mg PO BID #60 tabs 02/26/23 11/05/23 Unknown Rx (Keppra) calcium carbonate 500 mg PO DAILY 11/05/23 11/05/23 11/05/23 History estradiol 1 mg tablet 1 mg PO DAILY 11/05/23 11/05/23 11/05/23 History fluticasone propionate 50 2 spray intranasal DAILY PRN 11/05/23 11/05/23 Unknown History mcg/actuation nasal ALLERGIES spray,suspension levothyroxine 150 mcg tablet 150 mcg PO QAM 11/05/23 11/05/23 11/05/23 History methotrexate sodium 2.5 mg tablet 2.5 mg PO Q7D 11/05/23 11/05/23 Unknown History methotrexate sodium 25 mg/mL 25 mg PO Q7D 11/05/23 11/05/23 Unknown History injection solution tramadol 50 mg tablet 50 mg PO Q8H PRN Pain 11/05/23 11/05/23 Unknown History Allergies Allergy/AdvReac Type Severity Reaction Status Date / Time celecoxib [From Celebrex] Allergy Unknown Verified 02/26/23 15:36 Penicillins Allergy Unknown Verified 02/26/23 15:36 rofecoxib [From Vioxx] Allergy Unknown Verified 02/26/23 15:36 cortisone cream Allergy Unknown Uncoded 02/26/23 15:36 PFSH Acute 2 PFSH: Medical History (Updated 11/05/23 @ 11:50 by Dung Moscoso MD) Psychiatric care Vitals/I&O/Wt Last Vital Signs Temp 98.1 F 11/05/23 10:58 Pulse 85 11/05/23 10:58 Resp 18 11/05/23 10:58 BP 158/89 11/05/23 10:58 Pulse Ox 99 11/05/23 10:58 O2 Del Method Room Air 11/05/23 10:58 11/04/23 11/05/23 11/05/23 22:59 06:59 14:59 Intake Total 100 / 100 Balance 100 / 100 Weight last 48 hrs Weight 220 lb Physical Exam 2 Narrative: NIH score = 0 The patient is alert and oriented x 3. Speech fluent. Head normocephalic. Neck supple. Cranial nerves II through XII intact. Pupils 4 mm round reactive to light and accommodation. Extraocular movements intact. Motor testing 5/5 bilaterally. Deep tendon reflexes 2+ in the upper extremities and patellar reflexes bilaterally. Achilles reflexes were difficult to obtain. Plantar responses flexor bilaterally. There was no clonus. Sensory examination was intact to touch. Patient reported chronic decreased sensation in her legs from the knees down bilaterally since back surgeries. There was no extinction on double sensory stimulation. Visual dupont full via confrontation. There were no nystagmus. There was no neglect. Throat clear. Lungs clear. Heart regular rhythm and rate. Extremities were negative for clubbing cyanosis or edema. Data 11/05/23 11:01 11/05/23 11:01 A&P Assessment and plan (1) Seizures: Impression: 1. 2-year history of recurrent seizures manifested as acute onset of buzzing in her ears associated with elevated blood pressure followed by pain behind her eyes and generalized head pain followed by blurred vision, facial drawing on the left followed by loss of consciousness with generalized body stiffening and teeth clenching lasting anywhere from 30 seconds to 3 minutes. Treated with Keppra in the past but Keppra was tapered and discontinued approximately 4 to 5 months prior to this admission. Last reported seizure episodes 11/05/2023 2. Clinical history suggestive of intractable migraine headaches without aura with status migrainous 3. History of cervical disc surgery x 3 4. History of lumbar disc surgery x 3 with residual bilateral lower extremity numbness and decreased sensation from her knees down to her toes bilateral 5. Recent low back injury with low back pain 6. Hypothyroidism 7. Hypokalemia potassium 3.3 on labs obtained on 11/05/2023 Plan: 1. Agree with obtaining CT angiogram of the head and neck to assess for aneurysm and intracranial thrombus 2. Head MRI with and without contrast to assess for space-occupying lesion 3. Continue Keppra 500 mg IV 3 times a day and plan to change Keppra to oral formulation on 11/06/2023 utilizing Keppra XR 750 mg p.o. twice daily 4. Trough Keppra level 11/06/2023 5. Surface EEG recording to assess for subclinical seizure activity 6. Seizure precautions per state law which includes but not limited to no driving or participating in activities that would endanger herself or others in the event the patient experienced a seizure while participating in those activities per state law 7. Recommend cardiac telemetry monitoring to assess for cardiac arrhythmia 8. Address hypokalemia 9. Consider obtaining cardiac evaluation if patient experiences any chest pain or cardiac telemetry monitoring reveals any cardiac arrhythmias 10. Seizure precautions and fall precautions during his hospitalization 11. Pad bed rails 12. Ativan 1 mg IV every 6 hours as needed seizures lasting for greater than 3 minutes or greater than 2 seizures within a 1 hour period of time. 13. Nurtec ODT 75 mg p.o. at onset of intractable migraine headache may repeat 1 tablet in 2 hours if needed up to total of 2 tablets/day 14. Educate patient on potential side effects of Ativan and Keppra 15. Schedule patient for follow-up in the [facility] neurology clinic 1 week after discharge (2) Chronic headaches: Consult Attestations 2 Medical Necessity Statement: The patient was evaluated by neurology for acute care/code stroke emergency department room 10 and seizures/headaches Coding Level of Care Code 70674 Diagnoses Seizures R56.9 Chronic headaches R51.9; G89.29
--- NOTE | 2023-11-05 11:57 | P.HP_ITS ---
Providers/Chief Complaint 2 Admitting Physician: Asa Hope MD, hospitalist Chief Complaint: stroke alert History of Present Illness Shaina Garrido is a 53 year old female who works in registration in the emergency department and has past history of episodes concerning for seizures, was noted to be not responding normally at work. There was concern of posturing, and face drawing up. She was brought over to the emergency department where some generalized shaking was noted, with concern for seizure. She was given Ativan IV. When I interviewed the patient, she had already recovered. She was alert, oriented, and does not remember any of the events surrounding the concern. She states she has been stressed lately working 2 jobs and is also been sleep deprived. In the last several months she had been weaned off Keppra as it thought it was no longer needed. She denies any recent fevers. Please see neurology note as well. In the emergency department she received some lorazepam 2 mg IV as well as Keppra. Review of Systems 2 General: Reports: 10 or more systems reviewed and unremarkable except in HPI and below Card: Denies: chest pain Resp: Denies: dyspnea GI: Denies: abdominal pain, change in stool character or hematochezia Medications/Allergies Home Medications Medication Instructions Recorded Confirmed Last Taken Type cholecalciferol (vitamin D3) 1,250 1,250 mcg PO Q7D 03/27/20 11/05/23 11/03/23 History mcg (50,000 unit) capsule cyclobenzaprine 10 mg tablet 10 mg PO BEDTIME 03/27/20 11/05/23 11/04/23 History diazepam 5 mg tablet 5 mg PO Q6H PRN Anxiety 03/27/20 11/05/23 Unknown History losartan 25 mg tablet 25 mg PO DAILY 03/27/20 11/05/23 11/05/23 History levetiracetam 500 mg tablet 500 mg PO BID #60 tabs 02/26/23 11/05/23 Unknown Rx (Keppra) calcium carbonate 500 mg PO DAILY 11/05/23 11/05/23 11/05/23 History estradiol 1 mg tablet 1 mg PO DAILY 11/05/23 11/05/23 11/05/23 History fluticasone propionate 50 2 spray intranasal DAILY PRN 11/05/23 11/05/23 Unknown History mcg/actuation nasal ALLERGIES spray,suspension levothyroxine 150 mcg tablet 150 mcg PO QAM 11/05/23 11/05/23 11/05/23 History methotrexate sodium 2.5 mg tablet 2.5 mg PO Q7D 11/05/23 11/05/23 Unknown History methotrexate sodium 25 mg/mL 25 mg PO Q7D 11/05/23 11/05/23 Unknown History injection solution tramadol 50 mg tablet 50 mg PO Q8H PRN Pain 11/05/23 11/05/23 Unknown History Allergies Allergy/AdvReac Type Severity Reaction Status Date / Time celecoxib [From Celebrex] Allergy Unknown Verified 02/26/23 15:36 Penicillins Allergy Unknown Verified 02/26/23 15:36 rofecoxib [From Vioxx] Allergy Unknown Verified 02/26/23 15:36 cortisone cream Allergy Unknown Uncoded 02/26/23 15:36 PFSH Acute 2 PFSH: Medical History (Updated 11/05/23 @ 14:22 by Asa Hope MD) Hypothyroidism Hypertension Psoriasis Psychiatric care Surgical History History of hysterectomy History of appendectomy History of cholecystectomy History of back surgery History of neck surgery Social History (Updated 11/05/23 @ 14:23 by Asa Hope MD) Smoking and tobacco/nicotine status: never used tobacco/nicotine Alcohol intake: never Substance/Drug Use: never Vitals/I&O/Wt Last Vital Signs Temp 98.1 F 11/05/23 10:58 Pulse 88 11/05/23 11:40 Resp 21 H 11/05/23 11:40 BP 161/99 11/05/23 11:40 Pulse Ox 99 11/05/23 11:40 O2 Del Method Room Air 11/05/23 11:35 11/04/23 11/05/23 11/05/23 22:59 06:59 14:59 Intake Total 100 / 100 Balance 100 / 100 Weight last 48 hrs Weight 99.79 kg Physical Exam 2 Narrative: General exam demonstrates an alert and oriented white female in no apparent distress HEENT: Atraumatic normocephalic. Oropharynx is clear. No facial asymmetry is seen Neuro no obvious focal deficits. NIHSS score 0. Neck supple no lymphadenopathy Cardiovascular regular rate and rhythm without murmur Lungs clear Abdomen soft nontender obese positive bowel sounds exam deferred Extremities no sinus clubbing edema, cap refill brisk. Skin no rash Data 11/05/23 11:01 11/05/23 11:01 Other Labs: LFTs are normal Calcium and albumin are normal Urinalysis 5-10 squamous 5-10 white blood cells Urine drug screen negative Head CT no acute findings. I reviewed as well. CTA head neck negative for any vascular abnormality EKG per my review demonstrates sinus rhythm, left axis deviation, nonspecific ST-T wave changes. Incomplete right bundle is noted. A&P Assessment and plan (1) Seizures: Patient with witnessed grand mal seizure She has been on Keppra in the past but this was recently weaned off Initiate Keppra per neurology evaluation and suggestions EEG, MRI per neurology Observation, ICU initially seizure and fall precautions Ativan as needed CT head and CTA negative Neurologic checks Discontinue tramadol which I believe she is on at home as needed. (2) Chronic headaches: Plan Hypokalemia. Supplement. Check magnesium level History of hypothyroidism. Check TSH Multiple other medical problems as outlined past medical history Full code Low risk for DVT no prophylaxis needed. Attestations 2 Medical Necessity Statement*: Will need less than 2 midnight stay for evaluation and treatment of seizure Diagnoses Seizures R56.9 Chronic headaches R51.9; G89.29 Time Spent (min) 42
[2023-11-05 12:44] LABS: Amphetamines Screen Urine Negative (Negative); Barbiturates Screen Urine Negative (Negative); Benzodiazepines Screen Urine Negative (Negative); Cocaine Screen Urine Negative (Negative); Opiate Screen Urine Negative (Negative); PCP Screen Urine Negative (Negative); THC Screen Urine Negative (Negative)
[2023-11-05 12:46] LABS: Protein Urine Neg (Negative); Urine Color Yellow (Yellow); pH Urine 7 (5-7)
[2023-11-05 12:47] LABS: Add Urine Microscopic? YES; Bilirubin Urine Neg (Negative); Blood Urine Neg (Negative); Glucose Urine UA Norm (Normal); Ketones Urine Negative (Negative); Leukocyte Esterase Urine Negative (Negative); Nitrate Urine Negative (Negative); Urine Appearance Slightly Cloudy (CLEAR); Urobilinogen Urine Norm (Negative)
[2023-11-05 12:50] LABS: Add Urine Culture? No; Bacteria Urine TRACE /hpf
[2023-11-05] MEDS: HYDROcodone-acetaminophen 5-325 mg Tablet 1 TAB PO ×2 (14:41→19:18)
[2023-11-05] MEDS: sodium chloride 0.9% 1,000 ML 75 ML IV (14:41)
[2023-11-05] MEDS: potassium chloride ER 20 mEq Tablet 40 MEQ PO (14:42)
[2023-11-05 15:24] LABS: Magnesium 2.1 mg/dL (1.7-2.3); Thyroid Stimulating Hormone 1.28 uIU/mL (0.27-4.20)
--- NOTE | 2023-11-05 16:24 | PM.ACPR ---
Documented by User: Ruth Ramos 11/05/23 16:38 EEG Routine Details of Procedure EEG Routine 10383- awake & drowsy: [id number] Documented by User: Dung Moscoso MD 11/06/23 09:58 EEG Routine Details of Procedure Details/Comments: EEG TEMPLATE: This is a 19 channel routine video surface EEG recording utilizing the Inbox[employer] software with surface and EKG electrodes. The procedure was performed utilizing the international 10-20 system. Patient name: Shaina Garrido Date of : 1970 Patient age [age] years old Identification number: [id number] Referring Physician: Dung Moscoso MD EEG#: EEG Start time: 16:56:20 EEG End time: 17:29:19 Duration of study: 32 minutes Date of study: 11/05/2023 Reason for study: Seizures x 2 assess for subclinical seizure activity and to assist in determining if further adjustments of anticonvulsant medications are indicated Skull defects: None Condition of recording: The patient was reported to be awake and later on drowsy Cooperation: Good Activation procedures: None Medications: Intravenous Keppra, Flexeril, diazepam, Ativan, estradiol, methotrexate, tramadol Background activity: Background activity during wakefulness consisted of 9 Hz low voltage alpha activity posteriorly penetrated by intermittent low voltage beta activity centrally and anteriorly. The alpha activity was symmetrical and reactive to eye opening. Intermittently during the recording the record was partially obscured by muscle and motion artifact. Later during the recording the alpha activity dropped out and generalized 4 to 7 Hz theta activity was seen over the left and right hemispheres. Interictal activity: None Ictal activity: None Impression: This is a normal awake and drowsy 32-minute surface EEG recording. Note: A unremarkable EEG does not rule out a underlying seizure disorder. Therefore if clinically indicated recommend continuous video surface EEG monitoring for further clarification if warranted. Clinical recommendations: Recommend patient discontinue tramadol since this medication has been reported to be associated with seizures Physician name/Signature: Dung Moscoso MD fundraising consultant/Signature: Ruth Pascual
--- NOTE | 2023-11-05 18:05 | PC.NURSE ---
pt requesting to leave ama i have to work tomorrow, and this bed is causing my back to hurt too bad . called family they requested she stay but remains upset wants pain meds now and monitor leads off ..
--- NOTE | 2023-11-05 18:49 | PC.NURSE ---
orders noted from doctor for other pain medication ..while on phone pt put call light on staff in room noted rocking motion and when touched open eyes .. placed all monitor wires back on and restarted iv placed on bedrest
[2023-11-05] MEDS: levETIRAcetam 500 MG/100 ML PREMIX 400 MG IV (19:17)
--- NOTE | 2023-11-05 19:38 | PC.NURSE ---
Patient stated that they have pain of 8 out of 10 when this nurse was palpating their abdomen during their physical assessment. Dr. Sanchez was contacted and ordered a CT of the abdomen with contrast.
--- NOTE | 2023-11-05 19:42 | CTR_ITS ---
PROCEDURE INFORMATION: Exam: CT Abdomen And Pelvis With Contrast Exam date and time: 11/05/2023 9:11 PM Age: 53 years old Clinical indication: Abdominal pain; Prior surgery; Surgery date: 6+ months; Surgery type: Gb, appy, hyst; Additional info: Pain in right lower quadrant that is an 8/10. TECHNIQUE: Imaging protocol: Computed tomography of the abdomen and pelvis with contrast. Radiation optimization: All CT scans at this facility use at least one of these dose optimization techniques: automated exposure control; mA and/or kV adjustment per patient size (includes targeted exams where dose is matched to clinical indication); or iterative reconstruction. Contrast material: OMNI 350; Contrast volume: 100 ml; Contrast route: INTRAVENOUS (IV); COMPARISON: CR XR chest 1V [id number] 01/09/2019 12:50 PM RADIATION DOSE METRICS: Total DLP (mGy-cm): 881 FINDINGS: Liver: Normal. No mass. Gallbladder and biliary ducts: Cholecystectomy. Unremarkable biliary system. Pancreas: Normal. No ductal dilation. Spleen: Normal. No splenomegaly. Adrenal glands: Normal. No mass. Kidneys and ureters: Normal. No hydronephrosis. Stomach and bowel: Unremarkable. No obstruction. No mucosal thickening. Appendix: No evidence of appendicitis. Intraperitoneal space: Unremarkable. No free air. No significant fluid collection. Vasculature: Unremarkable. No abdominal aortic aneurysm. Lymph nodes: Unremarkable. No enlarged lymph nodes. Urinary bladder: Unremarkable as visualized. Reproductive: Hysterectomy. Small simple right ovarian cyst 2.6 cm diameter. Bones/joints: Posterior fusion of L3 through L5 is unremarkable in appearance with laminectomy changes. Negative for acute fractures. Soft tissues: Unremarkable. CT/CT abdomen pelvis w con* [id number] IMPRESSION: Negative for acute abdominopelvic pathology.
[2023-11-05] MEDS: hyDRALAzine 20 mg/mL INJ 1 mL 10 MG IVP (20:09)
--- NOTE | 2023-11-05 21:00 | PC.NURSE ---
Patient stated that they had over 5000 dollars in their purse. This nurse called Ryan (security), and Tuyet (Charge Nurse) to asses the patent's wallet with the patient's permission. The patient gave verbal consent to look through their wallet. 5096 dollars were counted alongside Ryan and Tuyet in front of the patient. The patient's money was placed back in their wallet and the patient stated that they would like their purse to be left in their room.
[2023-11-05] MEDS: iohexol 350 mg/mL 500 mL Btl (per mL) IV (21:18)
[2023-11-05] MEDS: cyclobenzaprine 10 mg Tablet PO (21:24)
[2023-11-06] VITALS (57 sets, daily range): BP systolic 98–136; BP diastolic 62–93; PULSE 74–97; RESP 13–28; TEMP 36.7–36.9; O2SAT 91–99; BMI 34.4
[2023-11-06] MEDS: levETIRAcetam 500 MG/100 ML PREMIX 400 MG IV ×2 (03:15→11:18)
[2023-11-06] MEDS: HYDROcodone-acetaminophen 5-325 mg Tablet 1 TAB PO ×3 (03:19→12:27)
[2023-11-06 04:40] LABS: Basophils # 0.1 10^3/uL (0.0-0.1); Basophils % 1.3 %; Eosinophils # 0.1 10^3/uL (0.0-0.8); Eosinophils % 1.5 %; Hematocrit 39.3 % (36-47); Lymphocytes # 1.3 10^3/uL (0.8-4.8); Mean Corpuscular HGB Conc 32.8 g/dL (30-55); Mean Corpuscular Hemoglobin 31.6 pg (27-33); Mean Corpuscular Volume 96.3 fl (85-98); Mean Platelet Volume 9.5 fL (7.4-10.4); Monocytes # 0.5 10^3/uL (0.2-0.9); Monocytes % 8.7 %; Neutrophils # 3.45 10^3/uL (1.8-7.7); Neutrophils % 64.1 %; Nucleated Red Blood Cells % 0 %; Platelet Count 254 10^3/cmm (157-399); Red Blood Count 4.08 10^6/uL (3.85-5.65); Red Cell Distribution Width 13.2 % (12.1-15.1); White Blood Count 5.38 10^3/uL (3.29-11.43)
[2023-11-06 05:02] LABS: Alanine Aminotransferase 11 U/L (0-33); Albumin Level 3.8 g/dL (3.5-5.2); Alkaline Phosphatase 59 U/L (35-105); Anion Gap 14.9 (5-19); Aspartate Amino Transferase 15 U/L (0-32); Blood Urea Nitrogen 8 mg/dL (6-20); Calcium 8.8 mg/dL (8.5-10.5); Carbon Dioxide 22 mmol/L (22-29); Chloride 107 mmol/L (98-107); Creatinine Clr Calc Pharmacy 128.5716; Globulin 3.6 g/dL (1.3-4.6); Glomerular Filtration Rate 103.8 mL/min (90-130); Glucose 97 mg/dL (65-115); Magnesium 2.1 mg/dL (1.7-2.3); Osmolality Calculated 288 mOsm/kg (285-295); Potassium 3.9 mmol/L (3.5-5.1); Sodium 140 mmol/L (136-145); Total Bilirubin 0.9 mg/dL (0.15-1.2); Total Protein 7.4 g/dL (6.6-8.7)
[2023-11-06] MEDS: levothyroxine 150 mcg Tablet PO (05:50)
[2023-11-06] MEDS: cyclobenzaprine 10 mg Tablet PO ×2 (06:56→12:27)
[2023-11-06] MEDS: losartan 50 mg Tablet 25 MG PO (08:35)
[2023-11-06] MEDS: sodium chloride 0.9% 1,000 ML 75 ML IV (08:36)
--- NOTE | 2023-11-06 09:30 | MR_ITS ---
WS: [id number] MRI HEAD WITH CONTRAST TECHNIQUE: Sagittal T1, T2 axial, T2 axial FLAIR, axial susceptibility weighted imaging, axial diffus ion weighted images, and coronal T2 images were obtained. Pre and post-T1 axial and post T1 coronal i mages. ADC and FSPGR images. CLINICAL INFORMATION: seizure, neuro deficit COMPARISON: CT head 11/05/2023 FINDINGS: No evidence of restricted diffusion to suggest acute ischemia. No suspicious intracranial signal abno rmalities. Normal galeano-white differentiation. Normal posterior fossa. Normal vascular flow voids at t he skull base. No extra-axial fluid collections. No mass of mass or mass effect. Paranasal sinuses ar e well aerated. Mastoid air cells are well aerated. No hemosiderin on the susceptibility weighted images. Normal optic chiasm and pituitary infundibulum. Temporal lobes and the Guevara formations are normal in appearance. No signal abnormalities in the mesial temporal lobes. No abnormal intracranial enhancement. Normal dural venous sinuses. Reported history of prior pituitary surgery. Normal optic chiasm. Infundibulum with rightward deviati on. Enhancing tissue in the sella eccentric to the LEFT extending to the LEFT cavernous sinus. No sup rasellar extension. No prior MRI studies for comparison. Recommend correlation with clinical history and pituitary tumor treatment. Enhancing tissue within the LEFT aspect of the sella suspicious for re current or residual adenoma. No significant suprasellar extension. Heterogeneous enhancing tissue in the sella measures 1.0 x 1.4 cm MR/MR head wo/w con [id number] IMPRESSION: 1. No evidence of restricted diffusion to suggest acute ischemia. 2. No suspicious intracranial signal normalities. 3. Temporal lobes hippocampal formations are normal in appearance. No signal n ormalities in the mesial temporal lobes. 4. No abnormal gadolinium enhancement. 5. Reported history of prior pituitary surgery. Enhancing tissue within the se lla eccentric to the LEFT with rightward deviation of the infundibulum. Recomme nd correlation with prior pituitary tumor and treatment presumably due to adeno ma. No recent MRI comparisons. Enhancing tissue suspicious for residual or recu rrent adenoma extending to the LEFT cavernous sinus. 6. No suprasellar extension. Enhancing tissue in the sella appears increased c ompared to 2017 contrast-enhanced CT
--- NOTE | 2023-11-06 09:37 | P.PN_ITS ---
Subjective 2 Subjective: History of Present Illness Shaina Garrido is a 53 year old female who reports a 2-year history of seizure- like episodes preceded by a buzzing sound in her head associated with elevated blood pressure with systolic blood pressure greater than 200 followed by pain behind her eyes and generalized severe aching pain in her head followed by blurred vision followed by face drawing up on the left and then generalized shaking and tonic posturing associated with teeth clenching lasting anywhere from 30 seconds up to 3 minutes. The patient reports that she was evaluated by a neurologist in [facility] and was started on Keppra with improvement in her symptoms. Patient reports undergoing head MRI and EEGs in [place]. According to the patient the studies were unrevealing. These records were not available for review. The patient reported that since she was stable, her Keppra was tapered and discontinued for 5 months ago. Patient is not sure of the dose of Keppra she was taking. The patient was at work on 11/05/2023 and was witnessed to experience a seizure-like episode. Code stroke was initiated and patient was transferred to the [facility] emergency room for a evaluation and treatment. Noncontrast head CT was obtained and reported to be negative. Serum glucose 109. CBC and comprehensive metabolic panel revealed decreased potassium at 3.3. Other labs were unrevealing. NIH score = 0. In the emergency room patient was loaded with 1 g of Keppra IV and Ativan IV x 1 dose with improvement in her symptoms prior to her neurological NIH assessment. The patient also has a history of 3 neck surgeries as well as 3 back surgeries with residual numbness in her lower extremities bilaterally from the knees down to include her feet and toes. She stated that recently she hurt her back bending down to sheepskin pickler an object and she has been scheduled for a lumbar MRI. On 11/06/2023 patient reports that she is feeling much better. She denied any headaches and there was no reports of any further seizures since admission on 11/05/2023. Head MRI scheduled for 10 AM on 11/06/2023. If this study is unrevealing patient may be discharged home and scheduled for follow-up in the [facility] neurology clinic in 2 weeks. Recommend patient remain on seizure precautions per state law until further notice. Surface EEG recording performed on 11/05/2023 was within normal limits. No seizure activity was seen. Drug allergies Celebrex type reaction unknown Penicillin which resulted in rash and facial swelling Vioxx type reaction unknown Cortisone cream type reaction unknown Current medications: Keppra XR 750 mg p.o. twice daily (started on 11/06/2023). Flexeril 10 mg p.o. nightly Valium 5 mg p.o. every 6 hours as needed Vitamin D3 50,000 international units p.o. weekly Neurontin 300 mg p.o. 3 times daily Hydrocodone 1 p.o. every 6 hours as needed pain Hydroxyzine 25 mg p.o. every 6 hours as needed for anxiety Synthroid 112 mcg p.o. daily Losartan 25 mg p.o. daily Potassium chloride 20 mEq p.o. daily Nitrofurantoin 100 mg p.o. twice daily Carafate 1 g p.o. 4 times daily as needed Effexor 37.5 mg p.o. 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 Review of Systems General: Reports: 10 or mor e systems reviewed and unremarkable except in HPI and below Vitals/I&O/Wt Last Vital Signs Temp 97.5 F L 11/05/23 21:15 Pulse 85 11/06/23 08:30 Resp 15 11/06/23 08:30 BP 136/75 11/06/23 08:35 Pulse Ox 97 11/06/23 08:30 O2 Del Method Room Air 11/06/23 07:45 11/05/23 11/06/23 11/06/23 22:59 06:59 14:59 Intake Total 100 / 200 1000 / 1200 100 / 100 Output Total 500 / 500 1150 / 1650 Balance -400 / -300 -150 / -450 100 / 100 Weight last 48 hrs Weight 220 lb Weight 220 lb Weight 220 lb Weight 220 lb Physical Exam 2 Narrative: Blood pressure 136/75 heart rate 85 respiration 18 temperature 97.5 The patient is alert and oriented x 3. Speech fluent. Head normocephalic. Neck supple. Cranial nerves II through XII intact. Pupils 4 mm round reactive to light and accommodation. Extraocular movements intact. Motor testing 5/5 bilaterally. Deep tendon reflexes 2+ in the upper extremities and patellar reflexes bilaterally. Achilles reflexes were difficult to obtain. Plantar responses flexor bilaterally. There was no clonus. Sensory examination was intact to touch. Patient reported chronic decreased sensation in her legs from the knees down bilaterally since back surgeries. There was no extinction on double sensory stimulation. Visual dupont full via confrontation. There were no nystagmus. There was no neglect. Throat clear. Lungs clear. Heart regular rhythm and rate. Extremities were negative for clubbing cyanosis or edema. Data 11/06/23 04:15 11/06/23 04:15 A&P Assessment and plan (1) Seizures: Impression: 1. 2-year history of recurrent seizures manifested as acute onset of buzzing in her ears associated with elevated blood pressure followed by pain behind her eyes and generalized head pain followed by blurred vision, facial drawing on the left followed by loss of consciousness with generalized body stiffening and teeth clenching lasting anywhere from 30 seconds to 3 minutes. Treated with Keppra in the past but Keppra was tapered and discontinued approximately 4 to 5 months prior to this admission. Last reported seizure episodes 11/05/2023 2. Clinical history suggestive of intractable migraine headaches without aura with status migrainous 3. History of cervical disc surgery x 3 4. History of lumbar disc surgery x 3 with residual bilateral lower extremity numbness and decreased sensation from her knees down to her toes bilateral 5. Recent low back injury with low back pain 6. Hypothyroidism 7. Hypokalemia potassium 3.3 on labs obtained on 11/05/2023 Plan: 1. Awaiting Head MRI with and without contrast to assess for space-occupying lesion 2. Okay to discontinue intravenous Keppra and start Keppra XR 750 mg p.o. twice daily 3. Please schedule patient for follow-up in the [facility] neurology clinic in 1-2 weeks 4. Will plan to obtain outpatient trough Keppra level when patient returns for follow-up clinic visit 5. Seizure precautions per state law which includes but not limited to no driving or participating in activities that would endanger herself or others in the event the patient experienced a seizure while participating in those activities per state law 6. Will plan to prescribe Nurtec ODT 75 mg p.o. at onset of intractable migraine headache may repeat 1 tablet in 2 hours if needed up to total of 2 tablets/day on the patient's follow-up clinic visit if the medication can be approved through specialty pharmacy 7. The patient is stable from neurological standpoint for discharge planning if head MRI does not reveal any acute findings (2) Headache, common migraine, intractable, with status migrainosus: Attestations 2 Medical Necessity Statement*: The patient was evaluated by neurology for recurrent seizures Coding Level of Care Code 65231 Diagnoses Seizures R56.9 Headache, common migraine, intractable, with status migrainosus G43.011
[2023-11-06] MEDS: LORazepam 2 mg/mL INJ 1 mL 1 MG IVP (10:07)
[2023-11-06] MEDS: gadobenate dimeglumine 20 mL vial IV (11:06)
[2023-11-06] MEDS: acetaminophen 325 mg Tablet 650 MG PO (11:31)
--- NOTE | 2023-11-06 12:27 | PM.DCS ---
Discharge Providers Date of Admission: 11/05/23 14:14 Date of Discharge: November 06, 2023 Attending Provider at Admission: Asa Hope MD Attending Provider at Discharge: Asa Hope MD Diagnoses at Discharge Discharge Diagnosis (1) Seizures: Status: Acute (2) Headache, common migraine, intractable, with status migrainosus: Status: Acute Reason for Visit Reason for Visit: stroke alert Hospital Course Hospital Course Shaina is a 53-year-old white female who presented through the emergency department after a flurry of events, consisting of unresponsiveness culminating in generalized shaking. There was concern for seizure. She was loaded with Keppra. Imaging tests were negative including CT and CTA. Neurology visited with her and was concerned about seizure versus migraine etiology. Pseudoseizure cannot be completely ruled out. MRI was done the following day with and without contrast that did not show a clear etiology. She had had previous pituitary adenoma surgery and there is some potential residual adenoma on MRI. This can be followed up as an outpatient. EEG was completed and did not show specific etiology. She was given seizure precautions, follow-up instructions with neurology in 1 week and her primary care provider in 3 to 5 days. She had quite a bit of back and neck pain which she chronically has but was worse upon coming into the hospital. She already has follow-up for this. A limited hydrocodone prescription was given as well as Narcan instructions for both. She was able to ask questions and agrees with the plan. Physical Exam Narrative: General exam no distress Neck is supple Cardiovascular regular rate and rhythm Lungs clear Abdomen is soft Extremities no sinus clubbing or edema Neuro no focal deficits Discharge Data Studies Completed and Pending Completed Studies During Hospitalization Category Date Time Status CT abdomen pelvis w con* [id number] Routine Cat Scan 11/05/23 19:[address] head thrombolytic 51506 Stat Cat Scan 11/05/23 10:54 Completed CTA head neck [CT angio headneck* [id number]] Stat Cat Scan 11/05/23 11:32 Completed MR head wo/w con [id number] Routine MRI 11/06/23 09:30 Completed Pending at discharge Category Date Time Status EEG electroencephalogram Routine Exams 11/05/23 14:14 Ordered EEG electroencephalogram Routine Exams 11/05/23 16:24 Ordered KEPPRA [Levetiracetam Immunoassy] Routine Lab 11/06/23 04:15 Received Radiology Impressions Head CT 11/05/23 10:54 IMPRESSION: No acute intracranial abnormality identified. ASSESSMENT: ASPECTS ([place] Stroke Program Early CT Score) is 10. ADDENDUM: 11/05/23 1125 THIS REPORT CONTAINS FINDINGS THAT MAY BE CRITICAL TO PATIENT CARE. The findings were verbally communicated by me to DR. AD MACARIO via telephone conference at 11:23 AM CDT on 11/05/2023. The findings were acknowledged and understood. Head/Neck CTA 11/05/23 11:32 IMPRESSION: No acute intracranial vascular abnormality identified. IMPRESSION: No acute extracranial vascular abnormality identified. REFERENCES: NASCET CRITERIA. The degree of stenosis in the cervical segment of the internal carotid artery is based on NASCET criteria. Normal is no stenosis. Mild is less than 50% stenosis. Moderate is 50-69% stenosis. Severe is 70% to 99% stenosis. Total occlusion is no detectable patent lumen. Abdomen/Pelvis CT 11/05/23 19:42 IMPRESSION: Negative for acute abdominopelvic pathology. Head MRI 11/06/23 09:30 IMPRESSION: 1. No evidence of restricted diffusion to suggest acute ischemia. 2. No suspicious intracranial signal normalities. 3. Temporal lobes hippocampal formations are normal in appearance. No signal normalities in the mesial temporal lobes. 4. No abnormal gadolinium enhancement. 5. Reported history of prior pituitary surgery. Enhancing tissue within the sella eccentric to the LEFT with rightward deviation of the infundibulum. Recommend correlation with prior pituitary tumor and treatment presumably due to adenoma. No recent MRI comparisons. Enhancing tissue suspicious for residual or recurrent adenoma extending to the LEFT cavernous sinus. 6. No suprasellar extension. Enhancing tissue in the sella appears increased compared to 2017 contrast-enhanced CT Laboratory Results WBC 5.38 10^3/uL (3.29-11.43) 11/06/23 04:15 RBC 4.08 10^6/uL (3.85-5.65) 11/06/23 04:15 Hgb 12.90 g/dL (11.27-16.99) 11/06/23 04:15 Hct 39.3 % (36-47) 11/06/23 04:15 MCV 96.3 fl (85-98) 11/06/23 04:15 MCH 31.6 pg (27-33) 11/06/23 04:15 MCHC 32.8 g/dL (30-55) 11/06/23 04:15 RDW 13.2 % (12.1-15.1) 11/06/23 04:15 Plt Count 254 10^3/cmm (157-399) 11/06/23 04:15 MPV 9.5 fL (7.4-10.4) 11/06/23 04:15 Neut % (Auto) 64.1 % 11/06/23 04:15 Lymph % (Auto) 24.0 % 11/06/23 04:15 [place] % (Auto) 8.7 % 11/06/23 04:15 Eos % (Auto) 1.5 % 11/06/23 04:15 Baso % (Auto) 1.3 % 11/06/23 04:15 Neut # (Auto) 3.45 10^3/uL (1.8-7.7) 11/06/23 04:15 Lymph # (Auto) 1.3 10^3/uL (0.8-4.8) 11/06/23 04:15 [place] # (Auto) 0.5 10^3/uL (0.2-0.9) 11/06/23 04:15 Eos # (Auto) 0.1 10^3/uL (0.0-0.8) 11/06/23 04:15 Baso # (Auto) 0.1 10^3/uL (0.0-0.1) 11/06/23 04:15 Nucleated RBC % (auto) 0 % 11/06/23 04:15 Nucleated RBCs # 0.0 /100WBC 11/06/23 04:15 PT 13.80 SECONDS (12.1-14.9) 11/05/23 11:01 INR 1.03 (0.8-1.2) 11/05/23 11:01 APTT 27.7 SECONDS (23.9-36.7) 11/05/23 11:01 Sodium 140 mmol/L (136-145) 11/06/23 04:15 Potassium 3.9 mmol/L (3.5-5.1) 11/06/23 04:15 Chloride 107 mmol/L (98-107) 11/06/23 04:15 Carbon Dioxide 22 mmol/L (22-29) 11/06/23 04:15 Anion Gap 14.9 (5-19) 11/06/23 04:15 BUN 8 mg/dL (6-20) 11/06/23 04:15 Creatinine 0.6 mg/dL (0.5-0.9) 11/06/23 04:15 GFR Calculation 103.8 mL/min (90-130) 11/06/23 04:15 Glucose 97 mg/dL (65-115) 11/06/23 04:15 POC Glucose 102 mg/dL (70-110) 11/05/23 10:57 Calculated Osmolality 288 mOsm/kg (285-295) 11/06/23 04:15 Calcium 8.8 mg/dL (8.5-10.5) 11/06/23 04:15 Magnesium 2.1 mg/dL (1.7-2.3) 11/06/23 04:15 Total Bilirubin 0.9 mg/dL (0.15-1.2) 11/06/23 04:15 AST 15 U/L (0-32) 11/06/23 04:15 ALT 11 U/L (0-33) 11/06/23 04:15 Alkaline Phosphatase 59 U/L (35-105) 11/06/23 04:15 Total Protein 7.4 g/dL (6.6-8.7) 11/06/23 04:15 Albumin 3.8 g/dL (3.5-5.2) 11/06/23 04:15 Globulin 3.6 g/dL (1.3-4.6) 11/06/23 04:15 TSH 1.28 uIU/mL (0.27-4.20) 11/05/23 11:01 Urine Color Yellow (Yellow) 11/05/23 12:22 Urine Appearance Slightly cloudy (CLEAR) 11/05/23 12:22 Urine pH 7 (5-7) 11/05/23 12:22 Ur Specific [place] 1.010 (1.005-1.030) 11/05/23 12:22 Urine Protein Neg (Negative) 11/05/23 12:22 Urine Glucose (UA) Norm (Normal) 11/05/23 12:22 Urine Ketones Negative (Negative) 11/05/23 12:22 Urine Blood Neg (Negative) 11/05/23 12:22 Urine Nitrate Negative (Negative) 11/05/23 12:22 Urine Bilirubin Neg (Negative) 11/05/23 12:22 Urine Urobilinogen Norm mg/dL (Negative) 11/05/23 12:22 Ur Leukocyte Esterase Negative (Negative) 11/05/23 12:22 Urine RBC None /hpf (0-2) 11/05/23 12:22 Urine WBC 5-10 /hpf (0-5) H 11/05/23 12:22 Ur Squamous Epith Cells 5-10 /hpf (0-5) H 11/05/23 12:22 Amorphous Sediment Not Reportable 11/05/23 12:22 Urine Bacteria Trace /hpf (NONE) 11/05/23 12:22 Urine Mucus None /hpf 11/05/23 12:22 Urine Opiates Screen Negative ng/mL (Negative) 11/05/23 12:22 Ur Barbiturates Screen Negative ng/mL (Negative) 11/05/23 12:22 Ur Phencyclidine Scrn Negative ng/mL (Negative) 11/05/23 12:22 Ur Amphetamines Screen Negative ng/mL (Negative) 11/05/23 12:22 U Benzodiazepines Scrn Negative ng/mL (Negative) 11/05/23 12:22 Urine Cocaine Screen Negative ng/mL (Negative) 11/05/23 12:22 U Marijuana (THC) Screen Negative ng/mL (Negative) 11/05/23 12:22 Vitals Last Vital Signs Temp 97.5 F L 11/05/23 21:15 Pulse 80 11/06/23 10:00 Resp 14 11/06/23 10:00 BP 135/91 11/06/23 10:00 Pulse Ox 98 11/06/23 10:00 O2 Del Method Room Air 11/06/23 07:45 Discharge Plan Discharge Patient Disposition: Home Condition: Stable Prescriptions: New hydrocodone-acetaminophen 5-325 mg Tablet 1 tab PO Q4H PRN (Reason: Moderate Pain) Qty: 20 0RF levetiracetam [Keppra XR] 750 mg tablet extended release 24 hr 750 mg PO BID Qty: 60 0RF naloxone [Narcan] 4 mg/actuation spray,non-aerosol 4 mg intranasal Q2M PRN (Reason: opioid overdose) Qty: 2 0RF Rx Instructions: spray 1 dose into ONE nostril; alternate nostrils w each dose until help arrives Continued cyclobenzaprine 10 mg tablet 10 mg PO BEDTIME losartan 25 mg tablet 25 mg PO DAILY diazepam 5 mg tablet 5 mg PO Q6H PRN (Reason: Anxiety) cholecalciferol (vitamin D3) 1,250 mcg (50,000 unit) capsule 1,250 mcg PO Q7D Rx Instructions: (ON TUESDAYS) methotrexate sodium 25 mg/mL solution 25 mg PO Q7D calcium carbonate 500 mg calcium (1,250 mg) tablet 500 mg PO DAILY methotrexate sodium 2.5 mg tablet 2.5 mg PO Q7D levothyroxine 150 mcg tablet 150 mcg PO QAM fluticasone propionate 50 mcg/actuation spray,suspension 2 spray INTRANASAL DAILY PRN (Reason: ALLERGIES) estradiol 1 mg tablet 1 mg PO DAILY Discontinued levetiracetam [Keppra] 500 mg tablet 500 mg PO BID Qty: 60 0RF tramadol 50 mg tablet 50 mg PO Q8H PRN (Reason: Pain) Discharge Orders: Discharge Order (Routine); Ordered 11/06/23 Ordered By: Asa Hope Referrals: Dung Moscoso MD [Physician] - 1 week Discharge Diet: Cardiac Discharge Activity: Increase activity as tolerated Patient Instructions: Opioid Safety Activity Restrictions/Additional Instructions: Seizure precautions. No driving, swimming Take all medicine as prescribed Follow-up with neurology 1 week, primary care provider 3 to 5 days. Primary care provider was not listed. Please identify and send a copy of discharge summary to them as well. Discharge Attestations Time Spent in Discharge Care*: greater than 30 min Quality Metrics Clinical Quality Measures [ No reported AMI, CVA or VTE this stay] Coding Level of Care Code 79077 Total time (in minutes) for Discharge: 40 Diagnoses Seizures R56.9 Headache, common migraine, intractable, with status migrainosus G43.011
--- NOTE | 2023-11-06 16:49 | PC.NURSE ---
Patient discharge at 1639. Patient ambulates out of unit accompanied by this nurse. Patient vital signs stable. Alert and oriented upon discharge. Escorted to friends vehicle. All IVs and monitoring equipment removed before discharge. Patient fully educated on discharge instructions including post stroke education and opiod safety. All questions and concerns addressed before discharge.
[2023-11-07 09:35] LABS: Levetiracetam Immunoassy 22.1 mcg/mL (6.0-46.0)
== END 2023-11-06 16:39 | disposition home or self-care (01) ==
LOC: ER 11:47 → ICU 14:32
PROVIDERS: Admitting Provider Internal Medicine; Emergency Provider Family Medicine; Visit Provider Internal Medicine
DX: R56.9 Unspecified convulsions (principal); G43.011 Migraine without aura, intractable, with status migrainosus; I10 Essential (primary) hypertension; M54.2 Cervicalgia; M54.50 Low back pain, unspecified; E03.9 Hypothyroidism, unspecified
CPT/HCPCS: 36415; 36416; 70450; 70496; 70498; 70553; 74177; 80053; 80177; 80306; 81001; 82962; 83735; 84443; 85025; 85610; 85730; 93005; 95816; 96361; 96374; 96375; 96376; 99291; A9577; G0378; J0360; J1953; J2060; J7030; Q9967